=== PATIENT | female | born 1960 | race Caucasian/White ===

== ENCOUNTER → 2020-01-20 11:09 | Outpatient (CLI) | payer OTHER, SELFPAY ==
--- NOTE | 2020-01-20 | DI.CT.S_ITS ---
PROCEDURE: CT ABDOMEN PELVIS WO/W CON INDICATIONS: Other microscopic hematuria TECHNIQUE: Optional 5 mm thick noncontrast images acquired from the diaphragm to the symphysis pubis. After the administration of intravenous contrast, 5 mm thick images acquired from the diaphragm to the symphysis pubis after a 10-minute delay. 2 mm thick coronal and sagittal reformats were then performed of the kidneys and ureters. For radiation dose reduction, the following was used: automated exposure control, adjustment of mA and/or kV according to patient size. COMPARISON: None. FINDINGS: Image quality: Excellent. Lung bases: Lung bases are clear. Heart size is normal. Urinary system: No hydronephrosis. Bilateral nephrolithiasis measuring up to 2 mm on the left and up to 4 mm on the right. Ureters appear nondilated. No bladder calculi seen. Contrast pacified portions of the bladder and renal collecting systems are unremarkable. No perinephric stranding. Subcentimeter renal foci, statistically cysts, although technically too small to characterize accurately and therefore nonspecific. Other solid organs: Liver is normal in size and enhancement. Gallbladder negative . Biliary system is non dilated. Pancreas enhances normally. Spleen is normal in size and enhancement. No adrenal nodules. Peritoneum and bowel: Bowel loops demonstrate normal wall thickness and caliber. No free fluid or air. Normal appendix. Nodes and vessels: No retroperitoneal or mesenteric adenopathy by size criteria. Aorta and inferior vena cava are normal in size. Abdominal wall: No ventral hernias. Pelvis: Bladder unremarkable. Within uterus, there is a hyper attenuating masslike focus measuring approximately 2.4 cm in diameter which could be better evaluated with ultrasound. Bones: No vertebral body compression fracture. Spondylytic changes and facet arthropathy. IMPRESSION: Bilateral nephrolithiasis as detailed above. No evidence of urinary obstruction Indeterminate masslike hyperattenuating focus within the uterus which could be better assessed with dedicated pelvic ultrasound as clinically warranted to exclude neoplasm. Dictated by: Ja Kam M.D. on 01/20/2020 at 12:12 Approved by: Ja Kam M.D. on 01/20/2020 at 12:20
== END ==
PROVIDERS: PCP Physician Assistant Medical; Referring Provider Physician Assistant Medical; Visit Provider Urology
DX: R31.29 Other microscopic hematuria (principal); N20.0 Calculus of kidney
CPT/HCPCS: 74178

== ENCOUNTER 2020-09-13 09:01 | Emergency (ER) | payer OTHER, SELFPAY ==
--- NOTE | 2020-09-13 09:05 | ED_ITS ---
HPI - Female Genitourinary General Chief complaint: Urogenital-Female Stated complaint: POSS UTI Time Seen by Provider: 09/13/20 09:05 Source: patient Mode of arrival: Ambulatory Limitations: no limitations History of Present Illness HPI Narrative: This is a 60-year-old female comes emergency department for possible UTI. Patient states that she developed some right flank discomfort on , 4 days ago. She had cystoscopy on Monday for surveillance. She had a very small area of concerning for bladder cancer which was removed. She has not required any additional treatment but she is having continued s urveillance with cystoscopy every 3 months. She states she had a lot of cramping in her extremities when she was sitting waiting for the cystoscopy this resolved the next day but then she noted that she has continued to have the flank discomfort. That had not resolved. She had chills overnight. She has not had any nausea or vomiting. She has not had any discernible fevers. She denies any anterior abdominal pain. She is not appreciate any dysuria, urgency hesitancy or difficulty with urination but has noted that her urine is quite cloudy and the color is changed. She denies any diarrhea or constipation. She denies any vaginal bleeding or discharge. Patient states she takes medication for hypertension. She denies any other major medical issues. She denies any allergies to medications. Patient does follow regularly with urology. Related Data Home Medications Medication Instructions Recorded Confirmed calcium carbonate-vitamin D3 1 tab PO #0 tab 12/18/15 01/17/18 multivitamin [Multiple Vitamins] 1 tab PO QDAY #0 tab 12/18/15 01/17/18 metoprolol tartrate 25 mg tablet 25 mg PO BID 01/17/18 01/17/18 Previous Rx's Medication Instructions Recorded amoxicillin-pot clavulanate 1 tab PO BID #10 tab 09/13/20 [Augmentin] Allergies Allergy/AdvReac Type Severity Reaction Status Date / Time No Known Drug Allergies Allergy Unverified 01/17/18 09:57 Review of Systems Review of Systems ROS Unobtainable: All systems reviewed & are unremarkable except as noted in HPI and below Patient History Medical History (Updated 09/13/20 @ 09:37 by Erlinda Evans DO) Chicken pox (~1960) Surgical History (Updated 01/09/18 @ 15:44 by Daiana Lacy) Anesthesia Status post delivery (09/16/82) Status post delivery (07/24/84) Family History (Updated 01/09/18 @ 15:45 by Daiana Lacy) Brother Depression Suicide Grandfather Colon cancer Lung cancer Smoker Grandfather Prostate cancer Grandmother Diabetes mellitus Hypertension Father No problems noted. Grandmother No problems noted. Mother No problems noted. Exam Narrative Exam Narrative: GENERAL: Alert and oriented x three, well-appearing female in mild distress. Patient is sitting up on the edge of the bed and appears comfortable. HEENT: Head normocephalic, atraumatic, EOMI, pupils reactive, face symmetric, moist mucous membranes NECK: Supple, full range of motion CARDIOVASCULAR: Regular rate and rhythm without murmurs, rubs or gallops. RESPIRATORY: Breath sounds equal bilaterally, no wheezes rales or rhonchi. ABDOMEN: Soft, nontender. Normoactive bowel sounds all 4 quadrants. No guarding or rebound, rigidity, no mass : No CVA tenderness bilaterally. EXTREMITIES: Normal gait. NEUROLOGICAL: Cranial nerves II through XII grossly intact. Moving all extremities SKIN: Warm, dry, no petechiae, no rashes or lesions. Initial Vital Signs Initial Vital Signs: Vital Signs Temperature 99.3 F 09/13/20 09:12 Pulse Rate 94 H 09/13/20 09:12 Respiratory Rate 16 09/13/20 09:12 Blood Pressure 154/71 H 09/13/20 09:12 Pulse Oximetry 98 09/13/20 09:12 Course Orders Ordered: ED Orders 09/13/20 09:14 Urine Culture Stat Urine Microscopic Stat Discontinued Medications Amoxicillin/Clavulanate Potassium (Amoxicillin/Clav 875/125 Mg) 1 tab PO NOW ONE Stop: 09/13/20 09:32 Last Admin: 09/13/20 09:36 Dose: 1 tab Documented by: [email or web address] Vital Signs Vital signs: Vital Signs - 8 hr 09/13/20 09:12 Temperature 99.3 F Pulse Rate 94 H Respiratory Rate 16 Blood Pressure 154/71 H Pulse Oximetry 98 MDM - Female Genitourinary Lab Data Attestation: I reviewed the patient's lab results. Labs: Lab Results 09/13/20 Range/Units 09:14 Urine RBC 5-10/hpf H (0-5/HPF) Urine WBC >100/hpf H (0-5/HPF) Urine Bacteria Many (>30) H (None) Ur Culture Indicated? Specimen cultured Urine Dip Bedside Urine Glucose Negative Bedside Urine Bilirubin - Negative Bedside Urine Ketone + 15 Urine Specific [place] 1.025 Bedside Urine Occult Blood +++ Bedside Urine pH 6.0 Bedside Urine Protein ++ 100 Bedside Urine Urobilinogen - Negative Bedside Urine Nitrite + Positive Bedside Urine Leukocytes +++ 500 Esterase MDM Narrative Medical decision making narrative: This is a 60-year-old female 4 days after cystoscopy with nitrates, leukocyte esterase and hematuria on urinalysis. Plan to to start patient on short course of antibiotics. I would treat her for UTI as she does not have any other systemic symptoms other than chills this time but patient and I discussed that if she is not having significant prove min 2-3 days or is continue to have symptoms after completion of antibiotics she needs re-evaluation for possible longer course of antibiotics. Patient I will discuss her urine will be sent for culture and if there is any resistance she will be re-contacted. Patient states she has been taking ibuprofen for pain which resolved her pain and its entirety and she was encouraged to continue this and or Tylenol as needed. Discharge Plan Departure Patient Disposition: Home Clinical Impression: Urinary tract infection Qualifiers: Encounter type: initial encounter Instructions: DI for Urinary Tract Infection (UTI) Activity Restrictions/Additional Instructions: Follow up in the next 2-3 days if you are not having any improvement of your symptoms. Take antibiotics until completed. You may take a acidophilus or probiotic daily to help prevent diarrhea. Prescription to [facility] [facility]. You may take Tylenol up to a 1000 mg every 8 hours and/or ibuprofen up to 800 mg every 8 hours as needed for pain. Please return for fevers greater 100.4 F, new or worsening back or flank pain, abdominal pain, persistent vomiting, lightheadedness or passing out, difficulty the or inability to urinate, black or bloody stools or other new or concerning symptoms. Prescriptions: New amoxicillin-pot clavulanate [Augmentin] 875-125 mg tablet 1 tab PO BID Qty: 10 RF: 0 No Action multivitamin [Multiple Vitamins] 1 EACH tablet 1 tab PO QDAY Qty: 0 RF: 0 calcium carbonate-vitamin D3 1,500 MG/200 IU tablet 1 tab PO Qty: 0 RF: 0 metoprolol tartrate 25 mg tablet 25 mg PO BID RF: 0 Referrals: Cathy Monson PA-C [Primary Care Provider] -
[2020-09-13 09:12] VITALS: BP 154/71; PULSE 94; RESP 16; TEMP 37.4; O2SAT 98; BMI 27.4
[2020-09-13] MEDS: AMOXICILLIN/CLAV 875/125 MG 1 TAB PO (09:36)
[2020-09-13 09:39] LABS: Bacteria Urine Many (>30); Culture Indicated Urine Specimen Cultured; RBC Urine 5-10/HPF (0-5/HPF); WBC Urine >100/HPF (0-5/HPF)
== END 2020-09-13 09:38 | disposition home or self-care (01) ==
PROVIDERS: Emergency Provider Emergency Medicine; PCP Physician Assistant Medical
DX: N39.0 Urinary tract infection, site not specified (principal)
CPT/HCPCS: 81003; 81015; 87077; 87086; 87186; 99283

== ENCOUNTER → 2022-06-15 10:29 | Outpatient (CLI) | payer OTHER, SELFPAY ==
--- NOTE | 2022-06-15 | DI.RAD.S_ITS ---
PROCEDURE: XR DEXA AXIAL SKELETON INDICATIONS: OSTEOPOROSIS SCREENING COMPARISON: None. FINDINGS: This blank DEXA report has been sent in error by the PACS system. The correct and complete report will be forthcoming in 1-2 days. Thank you for your patience and understanding. Dictated by: Pavel Morris M.D. on 06/15/2022 at 16:13 Approved by: Pavel Morris M.D. on 06/15/2022 at 16:13
== END ==
PROVIDERS: PCP Physician Assistant Medical; Referring Provider Physician Assistant Medical; Visit Provider Physician Assistant Medical
DX: Z13.820 Encounter for screening for osteoporosis (principal); Z78.0 Asymptomatic menopausal state; M85.88 Other specified disorders of bone density and structure, other site; Z85.828 Personal history of other malignant neoplasm of skin; Z85.51 Personal history of malignant neoplasm of bladder
CPT/HCPCS: 77080